=== PATIENT | male | born 1955 | race Caucasian/White ===

== ENCOUNTER 2018-09-15 09:52 | Outpatient (CLI) | payer OTHER ==
--- NOTE | 2018-09-15 19:46 | ULT ---
ABDOMINAL ULTRASOUND: 09/15/18 Ultrasonography of the abdomen was performed in this patient with a history of hepatitis C. No prior exams were available for comparison. The liver was upper normal in size measuring 15.8 cm in length. Internally it was unremarkable. There are no signs of mass, dilated ducts, or focal pathology. The ga llbladder contains no evidence of stones. The wall is not thick. The common bile duct is a normal 4 m m wide. The spleen is enlarged measuring 16.9 cm in length. The aorta and inferior vena cava were unr emarkable. The pancreas appears normal. The right kidney was 11.8 cm long and the left was 13.7 cm. Both appear normal. There was; however, a 5.5 cm slightly hypoechoic mass density immediately superior to the right kidney. I do not know if t his is an abnormal perinephric fat or an enlarged adrenal gland. Further workup of this finding is ne eded. IMPRESSION: 1. Borderline hepatic size. No focal hepatic findings. 2. 5.5 cm mass density just above the right kidney of uncertain etiology. A CT is recommended. I t may be helpful to do it with and without contrast should it be an adrenal lesion. Code T POS: HOME
== END 2018-09-15 09:53 | disposition home or self-care (01) ==
LOC: BURULT 09:52
PROVIDERS: ATTEND Internal Medicine
DX: B18.2 Chronic viral hepatitis C (principal); K70.30 Alcoholic cirrhosis of liver without ascites; I85.00 Esophageal varices without bleeding; K72.90 Hepatic failure, unspecified without coma; Z85.038 Personal history of other malignant neoplasm of large intestine; N28.89 Other specified disorders of kidney and ureter
CPT/HCPCS: 76700

== ENCOUNTER 2018-09-28 08:15 | Outpatient (CLI) | payer OTHER ==
[2018-09-28 08:44] LABS: Calc. Creatinine Clearance 0 mL/min (70-130); Estimated GFR-MDRD Greater than 90
[2018-09-28] MEDS ORDERED: Iopamidol 370 76% 50 ML VIAL FS ONE (09:00)
[2018-09-28] MEDS ORDERED: Iopamidol 370 76% 100 ML VIAL ONE (09:00)
--- NOTE | 2018-09-28 13:00 | CT ---
CT ABDOMEN WITHOUT AND WITH CONTRAST: Comparison: 10-13-17 History: Abnormality seen in the spleen on prior imaging. Technique: Multiple contiguous axial images were obtained in a CT of the abdomen only without and wit h contrast. PO contrast was administered. Coronal reformats were performed. FINDINGS: There are small calcifications in the spleen from prior granulomatous disease. There is a stable smal l area of decreased enhancement along the lateral aspect of the spleen measuring approximately 1.3 cm in size. The spleen is enlarged measuring 16.7 cm in length. There is a hypodensity in the right lobe of the liver which likely represents a cyst. Calcifications in the liver also are from prior granulomatous disease. The gallbladder, kidneys, adrenal glands, and pancreas are unremarkable. No free air, free fluid, or stranding changes are seen in the abdomen. Atherosclerotic calcifications are seen in the aorta. No abnormal adenopathy is seen. Degenerative changes are seen in the spine. Visualized inferior thorax and abdominal wall soft tissue s are unremarkable. IMPRESSION: 1. Small nonspecific hypodense region in the spleen. 2. Likely right hepatic cyst. POS: [facility]
== END 2018-09-28 08:16 | disposition home or self-care (01) ==
LOC: BURCT 08:15
PROVIDERS: ATTEND Internal Medicine
DX: R93.3 Abnormal findings on diagnostic imaging of other parts of digestive tract (principal); Z01.812 Encounter for preprocedural laboratory examination; R93.5 Abnormal findings on diagnostic imaging of other abdominal regions, including retroperitoneum
CPT/HCPCS: 36415; 74170; 82565

== ENCOUNTER 2019-03-23 08:46 | Outpatient (CLI) | payer OTHER ==
[2019-03-23 17:29] LABS: Anion Gap 10 mmol/L (10-20); BUN (Urea Nitrogen) 11 mg/dL (8.4-25.7); Calc. Creatinine Clearance 0 mL/min (70-130); Calcium 9.3 mg/dL (7.8-10.44); Carbon Dioxide 25 mmol/L (23-31); Chloride 108 mmol/L (98-107); Estimated GFR-MDRD Greater than 90; Glucose 83 mg/dL (80-115); Potassium 3.9 mmol/L (3.5-5.1); Sodium 139 mmol/L (136-145)
[2019-03-23 17:42] LABS: #Eosinphils 0.1 thou/uL (0.0-0.7); #Lymphocytes 0.7 thou/uL (1.20-3.40); #Monocytes 0.3 thou/uL (0.11-0.59); #Neutrophils 2.4 thou/uL (1.40-6.50); %Basophils 1.3 % (0.0-1.0); %Eosinophils 2.8 % (0.0-10.0); %Lymphocytes 19.4 % (21.0-51.0); %Neutrophils 67.4 % (42.0-75.0); Hemoglobin 14.7 g/dL (14.0-18.0); MDiff Complete? YES; Mean Corpuscular HGB CONC 33.2 g/dL (32.0-36.0); Mean Corpuscular Hemoglobin 31.8 pg (27.0-31.0); Mean Corpuscular Volume 95.6 fL (78.0-98.0); Mean Platelet Volume 8.2 fL (7.4-10.4); Platelet Count 76 thou/uL (130-400); Platelet Morphology Comment Appears Decreased; Poikilocytosis SLIGHT = 6-15 cells (100X) (0-5/hpf); RBC Distribution Width 13.3 % (11.5-14.5); Red Blood Cell (RBC) Count 4.63 mill/uL (4.70-6.10); White Blood Cell (WBC) Count 3.6 thou/uL (4.8-10.8)
--- NOTE | 2019-03-24 08:11 | ULT ---
HEPATIC ULTRASOUND: 03/23/2019 TECHNIQUE: Ultrasonography of the right upper quadrant was performed. FINDINGS: The liver is minimally enlarged, measuring 16.3 cm in oblique sagittal length. Its internal echogeni city seems normal. It is perhaps slightly bumpy along its exterior surfaces. There are no dilated d ucts. The portal vein show flow traveling toward the liver, as expected. The gallbladder contains n o signs of stones. The wall is somewhat thick at 4 mm. The common bile duct is borderline in size, at 6 mm. The right kidney appears normal and is 12.4 cm long. The pancreas is largely obscured by g as. IMPRESSION: 1. Slight hepatic enlargement without any focal internal findings. Portal venous flow normal. 2. Gallbladder wall thickness slightly prominent. If the patient had symptoms referable to gallbladd er disease, a HIDA scan could be helpful in assessing function. POS: HOME
== END 2019-03-23 08:47 | disposition home or self-care (01) ==
LOC: BURULT 08:46
PROVIDERS: ATTEND Physician Assistant Medical
DX: K70.30 Alcoholic cirrhosis of liver without ascites (principal); R16.0 Hepatomegaly, not elsewhere classified; K82.8 Other specified diseases of gallbladder
CPT/HCPCS: 36415; 76705; 80048; 82105; 85025

== ENCOUNTER 2021-11-01 01:19 | Emergency (ER) | payer MEDICARE, MEDICAID ==
[2021-11-01 02:27] LABS: #Eosinphils 0.1 thou/uL (0.0-0.7); #Lymphocytes 0.8 thou/uL (1.20-3.40); #Monocytes 0.3 thou/uL (0.11-0.59); #Neutrophils 2.2 thou/uL (1.40-6.50); %Basophils 1.1 % (0.0-1.0); %Eosinophils 3.3 % (0.0-10.0); %Lymphocytes 21.7 % (21.0-51.0); %Monocytes 9.8 % (0.0-10.0); %Neutrophils 64.2 % (42.0-75.0); Hemoglobin 13.2 g/dL (14.0-18.0); Mean Corpuscular HGB CONC 33.7 g/dL (32.0-36.0); Mean Corpuscular Hemoglobin 29.3 pg (27.0-31.0); Mean Corpuscular Volume 86.9 fL (78.0-98.0); Mean Platelet Volume 8.4 fL (7.4-10.4); Platelet Count 84 thou/uL (130-400); White Blood Cell (WBC) Count 3.5 thou/uL (4.8-10.8)
[2021-11-01 02:29] LABS: ALT (SGPT) 15 U/L (8-55); AST (SGOT) 18 U/L (5-34); Albumin 3.9 g/dL (3.4-4.8); Alkaline Phosphatase 73 U/L (40-110); Anion Gap 14 mmol/L (10-20); BUN (Urea Nitrogen) 14 mg/dL (8.4-25.7); Bilirubin, Total 0.6 mg/dL (0.2-1.2); Calc. Creatinine Clearance 0 mL/min (70-130); Calcium 9.4 mg/dL (7.8-10.44); Carbon Dioxide 23 mmol/L (23-31); Chloride 105 mmol/L (98-107); Globulin 2.7 g/dL (2.4-3.5); Glucose 104 mg/dL (80-115); Potassium 4.3 mmol/L (3.5-5.1); Protein, Total 6.6 g/dL (5.8-8.1); Sodium 138 mmol/L (136-145)
[2021-11-01 02:47] LABS: Bilirubin Negative (Negative); Blood, Urine Negative (Negative); Clarity Clear (Clear); Glucose, Urine (Dipstick) Negative (Negative); Ketone, Urine Negative (Negative); Leukocyte Negative (Negative); Nitrite Negative (Negative); Protein, Urine (Dipstick) Negative (Neg-Trace)
== END 2021-11-01 03:06 | disposition home or self-care (01) ==
LOC: BURERS 01:19
DX: R33.9 Retention of urine, unspecified (principal); G62.9 Polyneuropathy, unspecified
CPT/HCPCS: 36415; 80053; 81003; 85025

== ENCOUNTER 2021-11-01 15:58 | Emergency (ER) | payer MEDICARE, OTHER ==
[~2021-11-01 15:58] MED LIST: Iopamidol 370 76% 100 ML VIAL ONE
[2021-11-01] MEDS ORDERED: Fentanyl 100 MCG/2 ML VIAL ONE (16:38)
[2021-11-01 17:09] LABS: #Basophils 0.1 thou/uL (0.0-0.2); #Eosinphils 0.1 thou/uL (0.0-0.7); #Lymphocytes 0.7 thou/uL (1.20-3.40); #Monocytes 0.3 thou/uL (0.11-0.59); #Neutrophils 1.8 thou/uL (1.40-6.50); %Basophils 1.9 % (0.0-1.0); %Eosinophils 3.7 % (0.0-10.0); %Monocytes 9.2 % (0.0-10.0); %Neutrophils 60.2 % (42.0-75.0); Hemoglobin 13.8 g/dL (14.0-18.0); Mean Corpuscular HGB CONC 33.3 g/dL (32.0-36.0); Mean Platelet Volume 8.1 fL (7.4-10.4); Platelet Count 77 thou/uL (130-400); Red Blood Cell (RBC) Count 4.77 mill/uL (4.70-6.10); White Blood Cell (WBC) Count 2.9 thou/uL (4.8-10.8)
[2021-11-01 17:11] LABS: Anion Gap 15 mmol/L (10-20)
[2021-11-01 17:13] LABS: MDiff Complete? YES; Manual Diff?? NO
[2021-11-01 17:26] LABS: ALT (SGPT) 17 U/L (8-55); AST (SGOT) 27 U/L (5-34); Albumin 4.1 g/dL (3.4-4.8); Alkaline Phosphatase 67 U/L (40-110); BUN (Urea Nitrogen) 11 mg/dL (8.4-25.7); Bilirubin, Total 1.3 mg/dL (0.2-1.2); Calc. Creatinine Clearance 0 mL/min (70-130); Calcium 9.8 mg/dL (7.8-10.44); Carbon Dioxide 20 mmol/L (23-31); Chloride 104 mmol/L (98-107); Globulin 3.1 g/dL (2.4-3.5); Glucose 85 mg/dL (80-115); Magnesium 2.1 mg/dL (1.6-2.6); Potassium 4.6 mmol/L (3.5-5.1); Protein, Total 7.2 g/dL (5.8-8.1); Sodium 134 mmol/L (136-145)
[2021-11-02 13:57] LABS: SARS-CoV-2 PCR by NAA Not Detected (NotDetected)
== END 2021-11-01 18:20 | disposition home or self-care (01) ==
LOC: BURERS 15:58
DX: R10.9 Unspecified abdominal pain (principal); M48.061 Spinal stenosis, lumbar region without neurogenic claudication; Z20.822 Contact with and (suspected) exposure to COVID-19
CPT/HCPCS: 36415; 74177; 80053; 81003; 83605; 83735; 84484; 85025; 93005; 96374; J3010; Q9967; U0003; U0005